=== PATIENT | female | born 1995 | race Two or more races ===

== ENCOUNTER 2017-03-17 19:55 | Emergency (ER) | payer OTHER, MEDICAID ==
[~2017-03-17] VITALS: Ht 165.1 cm; Wt 59.9 kg
[~2017-03-17 19:55] MED LIST: NKM
[2017-03-17 20:00] VITALS: BP 127/69
--- NOTE | 2017-03-17 20:27 | Emergency Room Report ---
History of Present Illness General Chief Complaint: General Complaint Source: Patient Present Illness HPI 21-year-old female presents emergency department complaining of acute onset of fast breathing, feeling short of breath with progressive numbness and tingling in the bilateral hands in addition to visual disturbance that was temporary. Patient states she was sitting at her computer screen at work and she began to feel sick so she went outside to take a break and her numbness and tingling became worse. She denies history of anxiety attacks, asthma, recent travel, or leg pains Patient states she's been under a lot of stress at work and with family problems at home. Patient states she is otherwise healthy, denies cardiac hx. She does report progressive headache 7/10 in severity that has come and go for 2 days. Patient denies chest pain, palpitations, trauma or fall. Patient denies drug use. She states she took an Advil prior to arrival. denies dysuria, frequency, nausea, vomiting, or . denies dysuria, frequency, nausea, vomiting, or . Denies LOC, AMS, dizziness, Changes in Vision, Sensation, paresthesias, or a sudden severe headache. Allergies: Coded Allergies: No Known Allergies (Unverified , 03/17/17) Patient History Past Medical History: see triage record Past Surgical History: none Pertinent Family History: none Last Menstrual Period: 03/02/17 Now: No : 2 Para: 2 Reviewed Nursing Documentation: PMH: Agreed, PSxH: Agreed Nursing Documentation-PMH Hx Hypertension: Yes Review of Systems All Other Systems: negative except mentioned in HPI Physical Exam Vital Signs Date Time Temp Pulse Resp B/P Pulse Ox O2 Delivery O2 Flow Rate FiO2 03/17/17 19:50 98.8 78 16 132/72 100 Room Air Sp02 EP Interpretation: reviewed, normal General Appearance: no apparent distress, alert, GCS 15, non-toxic Head: normocephalic, atraumatic Eyes: bilateral eye PERRL, bilateral eye normal inspection ENT: hearing grossly normal, normal pharynx, no angioedema, normal voice Neck: full range of motion, supple/symm/no masses Respiratory: lungs clear, normal breath sounds, no respiratory distress, no wheezing, speaking full sentences Cardiovascular #1: regular rate, rhythm, no edema Genitourinary: normal inspection, no CVA tenderness Musculoskeletal: back normal, gait/station normal, normal range of motion, non- tender Neurologic: alert, oriented x3, responsive, motor strength/tone normal, sensory intact, speech normal Psychiatric: judgement/insight normal, memory normal, mood/affect normal, anxious Skin: normal color, no rash, warm/dry, well hydrated Medical Decision Making PA Attestation Dr. Matos is my supervising Physician whom patient management has been discussed with. Diagnostic Impression: Primary Impression: Hyperventilation syndrome Additional Impression: UTI (urinary tract infection) Qualified Codes: N30.00 - Acute cystitis without hematuria ER Course 21-year-old female presents emergency department complaining of acute onset of fast breathing, feeling short of breath with progressive numbness and tingling in the bilateral hands in addition to visual disturbance that was temporary. Patient states she was sitting at her computer screen at work and she began to feel sick so she went outside to take a break and her numbness and tingling became worse. She denies history of anxiety attacks. Patient states she's been under a lot of stress at work and with family problems at home. Patient states she is otherwise healthy, denies cardiac hx. She does report progressive headache that has come and go for 2 days. Patient denies chest pain , palpitations, trauma or fall. Patient denies drug use. She states she took an Advil prior to arrival. denies dysuria, frequency, nausea, vomiting, or . Ddx considered but are not limited to anxiety, GA, PE, asthma, thyroid storm, hyperthyroid, EPS, , UTI, substance use. Vital signs: are WNL, pt. is afebrile H&PE are most consistent with anxiety attack, will r/o and UTI- no cardiac RF's. Pt is non-tachycardic, non-tachypneic and oxygenating at 100% O2 on RA. ORDERS: -UA: few bacteria, elevated WBC's and leukocytes- consistent with UTI -urine Hcg:negative -UDS:negative ED INTERVENTIONS: - 1mg Ativan -Tylenol PO - re-evaluation after interventions: pt. states her numbness and chest tightness symptoms have subsided. DISCHARGE: At this time pt. is stable for d/c to home. Will provide printed patient care instructions, and any necessary prescriptions. Care plan and follow up instructions have been discussed with the patient prior to discharge. Labs Test 6/21/17 21:46 Urine Color Pale yellow Urine Appearance Clear Urine pH 6 (4.5-8.0) Urine Specific [place] 1.015 (1.005-1.035) Urine Protein Negative (NEGATIVE) Urine Glucose (UA) Negative (NEGATIVE) Urine Ketones 3+ (NEGATIVE) Urine Occult Blood Negative (NEGATIVE) Urine Nitrite Negative (NEGATIVE) Urine Bilirubin Negative (NEGATIVE) Urine Urobilinogen Normal MG/DL (0.0-1.0) Urine Leukocyte Esterase 1+ (NEGATIVE) Urine RBC 0-2 /HPF (0 - 2) Urine WBC 5-10 /HPF (0 - 2) Urine Squamous Epithelial Cells Moderate /LPF (NONE/OCC) Urine Bacteria Few /HPF (NONE) Urine HCG, Qualitative Negative Urine Opiates Screen Negative (NEGATIVE) Urine Barbiturates Screen Negative (NEGATIVE) Phencyclidine (PCP) Screen Negative (NEGATIVE) Urine Amphetamines Screen Negative (NEGATIVE) Urine Benzodiazepines Screen Negative (NEGATIVE) Urine Cocaine Screen Negative (NEGATIVE) Urine Marijuana (THC) Screen Negative (NEGATIVE) Last Vital Signs Date Time Temp Pulse Resp B/P Pulse Ox O2 Delivery O2 Flow Rate FiO2 03/17/17 19:50 98.8 78 16 132/72 100 Room Air Disposition: HOME, SELF-CARE Condition: Stable Scripts Buspirone Hcl* (BUSPAR*) 10 Mg Tablet 10 MG ORAL THREE TIMES A DAY Y for anxiety, #15 TAB 0 Refills Prov: Genesis Cabezas 03/17/17 Acetaminophen* (TYLENOL EXTRA STRENGTH*) 500 Mg Tablet 500 MG ORAL Q6H, #20 TAB 0 Refills Prov: Genesis Cabezas 03/17/17 Nitrofurantoin Monohyd/M-Cryst* (MACROBID 100 MG*) 100 Mg Capsule 100 MG ORAL EVERY 12 HOURS for 5 Days, #10 CAP Prov: Genesis Cabezas 03/17/17 Patient Instructions: Generalized Anxiety Disorder, Hyperventilation, Urinary Tract Infection, [id number] Additional Instructions: Take medications as directed. Follow up with PCP in 3-5 days Return sooner to ED if new symptoms occur, or current symptoms become worse. - Please note that this Emergency Department Report was dictated using [employer] rafter laborer technology software, occasionally this can lead to erroneous entry secondary to interpretation by the dictation equipment. Genesis Cabezas Mar 17, 2017 20:27
[2017-03-17 21:52] LABS: APPEARANCE,URINE CLEAR; KETONES,URINE 3+ (NEGATIVE); LEUKOCYTE ESTERASE ,URINE 1+ (NEGATIVE); NITRITE,URINE NEGATIVE (NEGATIVE); PH,URINE 6 (4.5-8.0); PROTEIN,URINE NEGATIVE (NEGATIVE); UROBILINOGEN,URINE NORMAL MG/DL (0.0-1.0)
[2017-03-17 22:08] LABS: RBC,URINE 0-2 /HPF (0 - 2)
[2017-03-17 22:09] LABS: BACTERIA,URINE FEW /HPF; SQUAMOUS EPITHELIAL CELL,UR MODERATE /LPF (NONE/OCC)
[2017-03-17] MEDS ORDERED: BUSPAR10 MG ORAL (22:16)
[2017-03-17] MEDS ORDERED: TYLENOL EXTRA500 MG ORAL (22:16)
[2017-03-17] MEDS ORDERED: NITROFURANTOIN100 M2 ORAL (22:16)
[2017-03-17 22:20] VITALS: BP 127/69
== END 2017-03-17 22:20 | disposition home or self-care (01) ==
LOC: EDBD 19:55 → EMR 20:30
DX: R06.4 Hyperventilation (principal); N39.0 Urinary tract infection, site not specified; I10 Essential (primary) hypertension
CPT/HCPCS: 80300; 81003; 81025; 99284